=== PATIENT | male | born 1965 | race Caucasian/White ===

== ENCOUNTER 2022-06-14 04:56 | Inpatient (IN) | payer BC ==
[2022-06-14] MEDS ORDERED: Ketorolac Tromethamine 30 MG/ML VIAL ONE (05:34)
[2022-06-14 05:57] LABS: Hemoglobin 13.9 g/dL (14.0-18.0); Mean Corpuscular HGB CONC 33.9 g/dL (32.0-36.0); Mean Corpuscular Hemoglobin 31.3 pg (27.0-31.0); Mean Corpuscular Volume 92.4 fl (78.0-98.0); Mean Platelet Volume 7.9 fL (7.4-10.4); Platelet Count 276 10x3/uL (130-400); RBC Distribution Width 12.4 % (11.5-14.5); Red Blood Cell (RBC) Count 4.42 mill/uL (4.70-6.10); White Blood Cell (WBC) Count 24.9 10x3/uL (4.8-10.8)
[2022-06-14 06:16] LABS: ALT (SGPT) 46 U/L (8-55); AST (SGOT) 30 U/L (5-34); Albumin 3.6 g/dL (3.5-5.0); Alkaline Phosphatase 66 U/L (40-110); Anion Gap 13 mmol/L (10-20); BUN (Urea Nitrogen) 13 mg/dL (8.4-25.7); Bilirubin, Total 1.5 mg/dL (0.2-1.2); Calc. Creatinine Clearance 0 mL/min (70-130); Calcium 8.9 mg/dL (7.8-10.44); Carbon Dioxide 24 mmol/L (22-29); Chloride 104 mmol/L (98-107); Estimated GFR 70; Globulin 2.6 g/dL (2.4-3.5); Glucose 143 mg/dL (70-105); Lipase 11 U/L (8-78); Potassium 3.3 mmol/L (3.5-5.1); Protein, Total 6.2 g/dL (6.0-8.3); Sodium 138 mmol/L (136-145)
[2022-06-14 06:19] LABS: Band 23 % (5-11); Lymphocytes 6 % (21-51); MDiff Complete? YES; Metamyelocyte 2 % (0-0); Monocytes 1 % (0-10); Neutrophil 68 % (42-75); Ovalocytes SLIGHT = 2-5 cells (100X) (0-1/hpf); Platelet Morphology Comment Appears Adequate
[2022-06-14] MEDS ORDERED: cefTRIAXone\\ROCEPHIN 2 GM VIAL ONE (06:30)
[2022-06-14 07:28] LABS: SARS-CoV-2 NAA Rapid Test Not Detected (NotDetected)
[2022-06-14 08:09] LABS: Bilirubin Negative (Negative); Blood, Urine Negative (Negative); Glucose, Urine (Dipstick) Negative (Negative); Ketone, Urine Negative (Negative); Leukocyte Negative (Negative); Nitrite Negative (Negative); Protein, Urine (Dipstick) Trace mg/dL (Neg-Trace); Urobilinogen 0.2 mg/dL (Less than 2); pH, Urine 7.5 (5.0-9.0)
[2022-06-14 08:10] LABS: Clarity Clear (Clear)
[2022-06-14] MEDS ORDERED: Communication Order-Pharmacy FS PRN (08:10)
[2022-06-14] MEDS ORDERED: Communication Order-Pharmacy FS ONE (08:10)
[2022-06-14] MEDS ORDERED: VANCOMYCIN 2 GRAM/500 ML BAG 2 GM in Premix Bag 1 BAG IVPB SCH (08:15)
[2022-06-14] MEDS ORDERED: Vancomycin 1 GM in Premix Bag 1 BAG IVPB SCH (08:15)
[2022-06-14 08:16] LABS: Bacteria/HPF None Seen HPF (None Seen); RBC/HPF None Seen HPF (0-3); Squamous Epithelial 0-3 HPF (0-3); WBC/HPF 0-3 HPF (0-3)
[2022-06-14] MEDS ORDERED: Dextrose 5% in Water 1,000 ML IV PRN (08:17)
[2022-06-14] MEDS ORDERED: Acetaminophen 650 MG Suppository PR PRN (08:17)
[2022-06-14] MEDS ORDERED: Dextrose 50% Abboject 50 ML SYRINGE SLOW IVP PRN (08:17)
[2022-06-14] MEDS ORDERED: Ondansetron ODT 4 MG TAB PO PRN (08:17)
[2022-06-14] MEDS ORDERED: Acetaminophen 325 MG TAB PO PRN (08:17)
[2022-06-14] MEDS ORDERED: Ondansetron PF 4 MG/2 ML Vial IVP PRN (08:17)
[2022-06-14] MEDS ORDERED: Insulin Regular 300 UNITS/3 ML VIAL SC PRN ×2 (08:17)
[2022-06-14] MEDS ORDERED: Iopamidol-370 76% 500 ML 1 ML ONE (09:33)
[2022-06-14 09:54] LABS: Lactic Acid 3.4 mmol/L (0.5-2.2)
[2022-06-14] MEDS ORDERED: Cefepime 1 GM in Sodium Chloride 0.9% 100 ML IVPB SCH (10:00)
[2022-06-14 10:04] VITALS: BMI 31.9
[2022-06-14] MEDS: Sodium Chloride 0.9% 1,000 ML IV SCH ×4 (10:30→22:56)
[2022-06-14] MEDS ORDERED: Benzonatate 100 MG CAP PO PRN (11:02)
[2022-06-14 12:02] LABS: Strep pneumo Urine Ag NEGATIVE (NEGATIVE)
[2022-06-14 12:03] LABS: Legionella Urinary Ag Negative (Negative)
[2022-06-14] MEDS: Guaifenesin DM 100-10/5 ML UDCUP PO PRN ×3 (12:43→20:49)
[2022-06-14] MEDS: Cefepime 2 GM in Sodium Chloride 0.9% 100 ML IVPB SCH (13:51)
[2022-06-14] MEDS: Azithromycin 500 MG in Sodium Chloride 0.9% 250 ML 250 ML IVPB SCH (14:33)
[2022-06-14] MEDS ORDERED: FLU VACC QS2022-23(6MOS UP)/PF 60 MCG/0.5 ML SYRINGE IM ONE (18:00)
[2022-06-14 19:23] LABS: Hemoglobin A1c 5.7 % (4.0-6.0)
[2022-06-15] MEDS: Guaifenesin DM 100-10/5 ML UDCUP PO PRN ×3 (00:44→11:22)
[2022-06-15] MEDS: Cefepime 2 GM in Sodium Chloride 0.9% 100 ML IVPB SCH ×2 (02:10→13:34)
[2022-06-15] MEDS: Sodium Chloride 0.9% 1,000 ML IV SCH (06:03)
[2022-06-15 07:04] LABS: Hemoglobin 11.5 g/dL (14.0-18.0); Mean Corpuscular HGB CONC 33.1 g/dL (32.0-36.0); Mean Corpuscular Hemoglobin 30.9 pg (27.0-31.0); Mean Corpuscular Volume 93.3 fl (78.0-98.0); Mean Platelet Volume 7.7 fL (7.4-10.4); Platelet Count 251 10x3/uL (130-400); RBC Distribution Width 12.8 % (11.5-14.5); Red Blood Cell (RBC) Count 3.71 mill/uL (4.70-6.10); White Blood Cell (WBC) Count 27.7 10x3/uL (4.8-10.8)
[2022-06-15 07:16] LABS: Lactic Acid 2.6 mmol/L (0.5-2.2)
[2022-06-15 07:21] LABS: Anion Gap 12 mmol/L (10-20); BUN (Urea Nitrogen) 9 mg/dL (8.4-25.7); Calc. Creatinine Clearance 128 mL/min (70-130); Calcium 7.9 mg/dL (7.8-10.44); Carbon Dioxide 19 mmol/L (22-29); Chloride 105 mmol/L (98-107); Estimated GFR 101; Glucose 197 mg/dL (70-105); Potassium 3.2 mmol/L (3.5-5.1); Sodium 133 mmol/L (136-145)
[2022-06-15 08:12] LABS: Band 21 % (5-11); Lymphocytes 9 % (21-51); MDiff Complete? YES; Monocytes 3 % (0-10); Neutrophil 67 % (42-75); RBC Morphology Normal
[2022-06-15] MEDS: Azithromycin 500 MG in Sodium Chloride 0.9% 250 ML 250 ML IVPB SCH (09:13)
[2022-06-15] MEDS ORDERED: VANCOMYCIN 2 GRAM/500 ML BAG 2 GM in Premix Bag 1 BAG IVPB SCH (11:00)
[2022-06-15] MEDS ORDERED: Sodium Chloride 0.9% 1,000 ML IV SCH (18:35)
[2022-06-15] MEDS ORDERED: Ipratropium/Albuterol 3 ML NEB NEB SCH (18:45)
[2022-06-15] MEDS: guaiFENesin/DM ER PO SCH (20:43)
[2022-06-15] MEDS: Ipratropium/Albuterol 3 ML NEB NEB SCH (22:58)
[2022-06-16] MEDS: Cefepime 2 GM in Sodium Chloride 0.9% 100 ML IVPB SCH ×2 (01:03→14:04)
[2022-06-16] MEDS: Ipratropium/Albuterol 3 ML NEB NEB SCH ×6 (02:25→22:45)
[2022-06-16] MEDS: Losartan 25 MG TAB PO SCH (09:44)
[2022-06-16] MEDS: guaiFENesin/DM ER PO SCH ×2 (09:44→20:39)
[2022-06-16] MEDS: Hydrochlorothiazide 25 MG TAB PO SCH (09:44)
[2022-06-16] MEDS: Azithromycin 500 MG in Sodium Chloride 0.9% 250 ML 250 ML IVPB SCH (09:45)
[2022-06-16 10:20] LABS: #Eosinphils 0.1 thou/uL (0.0-0.7); #Lymphocytes 1.4 thou/uL (1.20-3.40); #Monocytes 0.7 thou/uL (0.11-0.59); #Neutrophils 12.7 thou/uL (1.40-6.50); %Basophils 0.2 % (0.0-1.0); %Eosinophils 0.4 % (0.0-10.0); %Lymphocytes 9.5 % (21.0-51.0); %Monocytes 4.7 % (0.0-10.0); %Neutrophils 85.1 % (42.0-75.0); Hemoglobin 11.4 g/dL (14.0-18.0); Mean Corpuscular HGB CONC 33.6 g/dL (32.0-36.0); Mean Corpuscular Hemoglobin 30.9 pg (27.0-31.0); Mean Corpuscular Volume 92.1 fl (78.0-98.0); Mean Platelet Volume 7.7 fL (7.4-10.4); Platelet Count 259 10x3/uL (130-400); RBC Distribution Width 12.4 % (11.5-14.5); Red Blood Cell (RBC) Count 3.68 mill/uL (4.70-6.10); White Blood Cell (WBC) Count 14.9 10x3/uL (4.8-10.8)
[2022-06-16 10:42] LABS: Vancomycin, Trough 2.6 ug/mL
[2022-06-16 10:44] LABS: Anion Gap 13 mmol/L (10-20); BUN (Urea Nitrogen) 9 mg/dL (8.4-25.7); Calc. Creatinine Clearance 150 mL/min (70-130); Calcium 8.7 mg/dL (7.8-10.44); Carbon Dioxide 21 mmol/L (22-29); Chloride 108 mmol/L (98-107); Estimated GFR 106; Glucose 153 mg/dL (70-105); Potassium 3.5 mmol/L (3.5-5.1); Sodium 138 mmol/L (136-145)
[2022-06-16] MEDS ORDERED: VANCOMYCIN 2 GRAM/500 ML BAG 2 GM in Premix Bag 1 BAG IVPB SCH (11:00)
[2022-06-16] MEDS: AMOXicillin 250 MG CAP PO SCH ×2 (17:37→20:38)
[2022-06-16] MEDS: Apixaban 5 MG TAB PO SCH (20:38)
[2022-06-17] MEDS: Ipratropium/Albuterol 3 ML NEB NEB SCH ×4 (03:00→15:19)
[2022-06-17 06:18] LABS: #Eosinphils 0.3 thou/uL (0.0-0.7); #Lymphocytes 2.2 thou/uL (1.20-3.40); #Monocytes 0.7 thou/uL (0.11-0.59); #Neutrophils 6.3 thou/uL (1.40-6.50); %Basophils 0.4 % (0.0-1.0); %Lymphocytes 22.9 % (21.0-51.0); %Monocytes 7.6 % (0.0-10.0); %Neutrophils 66.2 % (42.0-75.0); Hemoglobin 11.5 g/dL (14.0-18.0); Mean Corpuscular HGB CONC 34.1 g/dL (32.0-36.0); Mean Corpuscular Hemoglobin 31.7 pg (27.0-31.0); Mean Corpuscular Volume 92.8 fl (78.0-98.0); Mean Platelet Volume 7.9 fL (7.4-10.4); Platelet Count 258 10x3/uL (130-400); RBC Distribution Width 12.5 % (11.5-14.5); Red Blood Cell (RBC) Count 3.63 mill/uL (4.70-6.10); White Blood Cell (WBC) Count 9.5 10x3/uL (4.8-10.8)
[2022-06-17 06:35] LABS: Anion Gap 12 mmol/L (10-20); BUN (Urea Nitrogen) 11 mg/dL (8.4-25.7); Calc. Creatinine Clearance 139 mL/min (70-130); Calcium 8.8 mg/dL (7.8-10.44); Carbon Dioxide 23 mmol/L (22-29); Chloride 108 mmol/L (98-107); Estimated GFR 104; Glucose 104 mg/dL (70-105); Magnesium 1.9 mg/dL (1.6-2.6); Potassium 3.3 mmol/L (3.5-5.1); Sodium 140 mmol/L (136-145)
[2022-06-17] MEDS ORDERED: Potassium Chloride 20 MEQ TAB PO SCH (08:30)
[2022-06-17] MEDS ORDERED: Magnesium 2 GM/50 ML(in water) 2 GM in Premix Bag 1 BAG IVPB SCH (08:30)
[2022-06-17 08:51] VITALS: BP 148/87; TEMP 98
[2022-06-17] MEDS ORDERED: Azithromycin 250 MG TAB PO SCH (09:00)
[2022-06-17] MEDS: Hydrochlorothiazide 25 MG TAB PO SCH (09:42)
[2022-06-17] MEDS: Apixaban 5 MG TAB PO SCH (09:43)
[2022-06-17] MEDS: Losartan 25 MG TAB PO SCH ×2 (09:43→09:44)
[2022-06-17] MEDS: guaiFENesin/DM ER PO SCH (09:51)
[2022-06-17] MEDS: AMOXicillin 250 MG CAP PO SCH ×2 (12:07→15:49)
== END 2022-06-17 18:32 | disposition home or self-care (01) | DRG 871 ==
LOC: ERS 04:56 → MSONC 08:09
PROVIDERS: ADMIT Internal Medicine; ATTEND Family Medicine
DX: A41.9 Sepsis, unspecified organism (principal); I26.99 Other pulmonary embolism without acute cor pulmonale; J15.9 Unspecified bacterial pneumonia; I10 Essential (primary) hypertension; R65.20 Severe sepsis without septic shock; E11.9 Type 2 diabetes mellitus without complications; F41.9 Anxiety disorder, unspecified; F43.10 Post-traumatic stress disorder, unspecified; Z96.659 Presence of unspecified artificial knee joint; F17.210 Nicotine dependence, cigarettes, uncomplicated; Z20.822 Contact with and (suspected) exposure to COVID-19; Z79.899 Other long term (current) drug therapy; Z98.890 Other specified postprocedural states
CPT/HCPCS: 36415; 36416; 71045; 71275; 80048; 80053; 80202; 81003; 83036; 83605; 83690; 83735; 83880; 84484; 85025; 85379; 87040; 87070; 87081; 87086; 87205; 87449; 87899; 93005; 93970; 94640; 96361; 96365; 96375; J0456; J0692; J0696; J1650; J1885; J3370; J3475; J3490; J7050; J7620; Q9967